=== PATIENT | male | born 1955 | race Caucasian/White ===

== ENCOUNTER 2017-04-08 16:57 | Emergency (ER) | payer MEDICARE ==
[~2017-04-08 16:57] MED LIST: ISOVUE-370 76%-LOCM 1 ML ONE
[2017-04-08 17:18] LABS: Mean Corpuscular HGB CONC 32.8 g/dL (32.0-36.0); Mean Corpuscular Hemoglobin 29.3 pg (27.0-31.0); Mean Corpuscular Volume 89.2 fl (80.0-94.0); Mean Platelet Volume 9.5 fL (7.4-10.4); Platelet Count 204 thou/uL (130-400); RBC Distribution Width 13.9 % (11.5-14.5); Red Blood Cell (RBC) Count 5.79 mill/uL (4.70-6.10); White Blood Cell (WBC) Count 39.6 thou/uL (4.8-10.8)
[2017-04-08 17:25] LABS: PTT 30.5 SEC (22.9-36.1)
[2017-04-08 17:31] LABS: Lymphocytes 63 % (21-51); MDiff Complete? YES; Monocytes 3 % (0-10); Neutrophil 32 % (42-75); PLT Morphology Comment Appears Adequate; RBC Morphology Normal; Reactive Lymphocytes 2 % (0-10)
[2017-04-08 17:39] LABS: ALT (SGPT) 15 U/L (8-55); AST (SGOT) 25 U/L (5-34); Albumin 4.6 g/dL (3.4-4.8); Alkaline Phosphatase 49 U/L (40-150); Anion Gap 13 mmol/L (10-20); BUN (Urea Nitrogen) 16 mg/dL (8.4-25.7); Bilirubin, Total 0.5 mg/dL (0.2-1.2); CK (CPK) 137 U/L (30-200); Calc. Creatinine Clearance 0 mL/min (70-130); Calcium 9.9 mg/dL (7.8-10.44); Carbon Dioxide 29 mmol/L (23-31); Chloride 104 mmol/L (98-107); Estimated GFR-MDRD 54; Globulin 3.7 g/dL (2.4-3.5); Glucose 80 mg/dL (80-115); Lipase 57 U/L (8-78); Potassium 4.2 mmol/L (3.5-5.1); Protein, Total 8.3 g/dL (5.8-8.1); Sodium 142 mmol/L (136-145)
[2017-04-08 17:41] LABS: Troponin I Less than 0.010 ng/mL (< 0.028)
[2017-04-08 17:47] LABS: Digoxin Less than 0.15 ng/mL (0.8-2.0)
--- NOTE | 2017-04-08 18:16 | RAD ---
PORTABLE AP CHEST X-RAY 04/08/17 HISTORY: Chest pain. COMPARISON: 12/21/14. FINDINGS: The cardiac silhouette and pulmonary vasculature are within normal limits. The lungs are clear. There is partial visualization of postsurgical changes of the lower cervical spine. There has been no inte rval change from the prior exam. IMPRESSION: No acute cardiopulmonary process. POS: [facility]
--- NOTE | 2017-04-08 20:15 | CT ---
CT ANGIOGRAM THORAX WITH IV CONTRAST: 04/08/17 HISTORY: Intermittent chest pain for one week. Patient describes pain as a pressure sensation in the middle of chest lasting a few seconds per episode. Patient also reports shortness of breath. COMPARISON: Noncontrast CT thorax on 12/19/14. FINDINGS: There are no filling defects in the pulmonary arteries to suggest a pulmonary embolus. There is minimal atherosclerotic plaque in the descending thoracic aorta as well as in the proximal a bdominal aorta with associated vascular calcifications in the proximal abdominal aorta. However, thor acic aorta is normal in caliber without evidence of an aortic dissection. Again noted is mild increase in mediastinal lymph nodes which are not enlarged by CT size criteria an d are stable when compared to the prior study. Minimal soft tissue density seen in each hilar region also suggesting mildly prominent lymph nodes. Again, this is overall stable from the prior noncontras anirudh CT exam. There is a small bleb seen within the medial aspect left upper lobe. There are a few very tiny pleura l based nodular densities in the right lower lobe medially and posteriorly. Minimal biapical pleural and parenchymal scarring is seen. No parenchymal pulmonary nodule or pleural effusion is seen. A 1.5 cm right adrenal nodule is present which does demonstrate an attenuation coefficient suggesting a sma ll adrenal adenoma. Remainder of the upper abdomen demonstrates a normal CT appearance. IMPRESSION: 1. No CT evidence of a pulmonary embolus. 2. Thoracic aorta is normal in caliber without evidence of an aortic dissection. Mild atheroscle rotic plaque is seen. 3. Right adrenal adenoma. 4. Nonspecific increased number of mediastinal and hilar lymph nodes also seen on the prior exam in 2015. POS: [facility]
[2017-04-08 20:33] LABS: Troponin I Less than 0.010 ng/mL (< 0.028)
== END 2017-04-08 20:52 | disposition home or self-care (01) ==
LOC: ERS 16:57
DX: R07.89 Other chest pain (principal); C91.10 Chronic lymphocytic leukemia of B-cell type not having achieved remission; F32.9 Major depressive disorder, single episode, unspecified; F17.210 Nicotine dependence, cigarettes, uncomplicated
CPT/HCPCS: 36415; 71045; 71275; 80053; 80162; 82550; 82553; 83690; 84484; 85025; 85379; 85610; 85730; 93005; 96360

== ENCOUNTER 2017-11-04 11:58 | Outpatient (CLI) | payer MEDICARE ==
--- NOTE | 2017-11-04 13:58 | CT ---
CT CHEST WITHOUT CONTRAST: DATE: 11/04/17. PROVIDED CLINICAL HISTORY: Current smoker, leukemia, lung cancer screening. FINDINGS: Comparison is made with the examination dated 12/19/[address] pulmonary angiogram 04/08/17. The heart, pericardium, and great vessels are suboptimally evaluated in the absence of IV contrast ma terial but demonstrate a stable unenhanced CT appearance. Conspicuous by number but not pathological ly enlarged mediastinal lymph nodes are again seen. Conspicuous by number but not pathologically enl arged axillary lymph nodes are present on the current study. The lungs are free of significant opacity. The airway appears to be of normal caliber. There is no pleural fluid, pleural thickening, or pneumothorax apparent. The osseous structures demonstrate no concerning lytic or blastic lesions. IMPRESSION: 1. Lung RADS category 1 - negative. Annual screening recommended. 2. Nonspecific prominent by number but not pathologically enlarged mediastinal and axillary lymph no jose j. POS: [facility]
== END 2017-11-04 11:59 | disposition home or self-care (01) ==
LOC: CT 11:58
PROVIDERS: ATTEND Family Medicine
DX: F17.210 Nicotine dependence, cigarettes, uncomplicated (principal)
CPT/HCPCS: G0297

== ENCOUNTER 2018-02-22 21:38 | Emergency (ER) | payer MEDICARE ==
[2018-02-23 00:50] LABS: Medtox Reader # READER 1
[2018-02-23 00:51] LABS: Amphetamine Not Detected (NotDetected); Barbiturates Screen Not Detected (NotDetected); Benzodiazepine Screen Not Detected (NotDetected); Cocaine Metabolite Screen Not Detected (NotDetected); Medtox Control Line Valid? VALID (VALID); Methadone Not Detected (NotDetected); Methamphetamine Not Detected (NotDetected); Opiate Screen Detected (NotDetected); Oxycodone Screen Not Detected (NotDetected); Phencyclidine (PCP) Not Detected (NotDetected); THC/Cannabinoid Screen Not Detected (NotDetected); Tricyclic Screen Not Detected (NotDetected)
[2018-02-23 01:08] LABS: Reflex for Review?? YES
[2018-02-23 01:09] LABS: Hemoglobin 13.7 g/dL (14.0-18.0); Mean Corpuscular HGB CONC 32.7 g/dL (32.0-36.0); Mean Corpuscular Hemoglobin 28.7 pg (27.0-31.0); Mean Corpuscular Volume 87.6 fL (78.0-98.0); Platelet Count 144 thou/uL (130-400); RBC Distribution Width 13.5 % (11.5-14.5); Red Blood Cell (RBC) Count 4.76 mill/uL (4.70-6.10); White Blood Cell (WBC) Count 42.2 thou/uL (4.8-10.8)
[2018-02-23 01:22] LABS: ALT (SGPT) 10 U/L (8-55); AST (SGOT) 14 U/L (5-34); Acetaminophen Less than 6.0 mcg/mL (10.0-30.0); Albumin 3.9 g/dL (3.4-4.8); Alcohol Less than 10 mg/dL (Less than 10); Alkaline Phosphatase 39 U/L (40-150); Anion Gap 12 mmol/L (10-20); BUN (Urea Nitrogen) 16 mg/dL (8.4-25.7); Bilirubin, Total 0.2 mg/dL (0.2-1.2); CK (CPK) 125 U/L (30-200); Calc. Creatinine Clearance 0 mL/min (70-130); Calcium 9.3 mg/dL (7.8-10.44); Carbon Dioxide 28 mmol/L (23-31); Chloride 107 mmol/L (98-107); Estimated GFR-MDRD 72; Globulin 2.9 g/dL (2.4-3.5); Glucose 99 mg/dL (80-115); Potassium 4.8 mmol/L (3.5-5.1); Protein, Total 6.8 g/dL (5.8-8.1); Salicylate Less than 8.0 mg/dL (15.0-30.0); Sodium 142 mmol/L (136-145)
[2018-02-23 01:24] LABS: Lymphocytes 80 % (21-51); MDiff Complete? YES; Monocytes 2 % (0-10); Neutrophil 18 % (42-75); PLT Morphology Comment Appears Adequate
== END 2018-02-23 01:55 | disposition home or self-care (01) ==
LOC: ERS 21:38
DX: R44.1 Visual hallucinations (principal); Z71.6 Tobacco abuse counseling; F17.210 Nicotine dependence, cigarettes, uncomplicated; F32.9 Major depressive disorder, single episode, unspecified; Z79.899 Other long term (current) drug therapy
CPT/HCPCS: 36415; 80053; 80306; 80307; 82550; 84443; 85025; 85060; 99406